=== PATIENT | female | born 1995 | race African-American/Black ===

== ENCOUNTER 2017-08-06 18:42 | Emergency (ER) | payer SELFPAY ==
[~2017-08-06 18:42] MED LIST: BACT800T5 PO; DIPH2%T PO; PRED20 PO; RANI150 PO
[2017-08-06 18:44] VITALS: BP 130/85; PULSE 84; RESP 20; TEMP 99.2; O2SAT 99
== END 2017-08-06 19:36 | disposition left against medical advice (07) ==
LOC: NED 18:42
DX: F99 Mental disorder, not otherwise specified (principal)
CPT/HCPCS: 99281